=== PATIENT | female | born 1965 | race Caucasian/White ===

== ENCOUNTER 2016-10-16 15:52 | Emergency (ER) | payer OTHER ==
[~2016-10-16] VITALS: Ht 160 cm; Wt 63.6 kg
[~2016-10-16 15:52] MED LIST: AUGMENTIN875TAB PO; BENZTROPINE1 MG PO; BENZTROPINE2 MG PO; BUSPAR5 MG PO; DEPAKOTE ER500 MG PO; DOCUSATE CAL240 MG PO; LEVOTHYROXIN75 MCG PO; PEPCID20 MG PO; RISPERIDAL IM; TRAZODONE50 MG PO
[2016-10-16 17:07] LABS: HEMATOCRIT 24.4 % (37.0-47.0); HEMOGLOBIN 8.9 g/dl (12.0-16.0); IMMATURE GRANULOCYTES 0.2 % (0.0-1.0); MEAN CELL VOLUME 94.6 fL CALC (80.0-100.0); MEAN CORPUSCULAR HGB 34.5 pG CALC (26.0-32.0); MEAN CORPUSCULAR HGB CONC 36.5 g/L CALC (32.0-36.0); NEUT# 0.9 thou/uL (2.00-7.15); RED BLOOD COUNT 2.58 mill/uL (4.20-5.60); RED CELL DISTRI WIDTH 13.2 % (11.5-15.5)
[2016-10-16 17:16] LABS: ALBUMIN 3.7 g/dL (3.2-5.0); ALKALINE PHOSPHATASE 85 u/l (38-126); AMYLASE 96 u/l (30-110); ANION GAP 12 (6-22 (CALC)); BILIRUBIN, TOTAL 0.3 mg/dL (0.0-1.4); BUN 18 mg/dL (7-17); BUN/CREATININE RATIO 32 (12-20 (CALC)); CALCIUM 8.9 mg/dL (8.4-10.2); CARBON DIOXIDE 29 mmol/l (22-30); CHLORIDE 94 mmol/l (95-108); CREATININE 0.6 mg/dL (0.5-1.0); GFR > 60 ML/MIN (>=60 (CALC)); GFR FOR AFR.AMER. > 60 ML/MIN (>=60 (CALC)); GLUCOSE 64 mg/dL (65-105); LIPASE 82 u/l (23-300); POTASSIUM 3.7 mmol/l (3.5-5.1); SGOT/AST 66 u/l (14-36); SGPT/ALT 35 u/l (9-52); SODIUM 131 mmol/l (137-146); TOTAL PROTEIN 7.3 g/dL (6.3-8.2)
[2016-10-16] MEDS ORDERED: NEXIUM40 M1 PO (17:21)
[2016-10-16] MEDS ORDERED: ZOFRAN4 MG/TAB PO (17:21)
[2016-10-16 17:28] LABS: MYOGLOBIN 34 ng/mL (0 - 62)
[2016-10-16 17:38] VITALS: BP 117/57
== END 2016-10-16 18:08 | disposition home or self-care (01) | DRG 392 ==
LOC: ED 15:52
PROVIDERS: Emergency Medicine
DX: R11.10 Vomiting, unspecified (principal); C79.51 Secondary malignant neoplasm of bone; C80.1 Malignant (primary) neoplasm, unspecified; Z79.899 Other long term (current) drug therapy

== ENCOUNTER 2016-12-20 09:15 | Inpatient (IN) | payer OTHER ==
[~2016-12-20] VITALS: Ht 160 cm; Wt 55.0 kg
[~2016-12-20 09:15] MED LIST changes: +NEXIUM40 M1 PO; +ZOFRAN4 MG/TAB PO
[2016-12-20 10:24] LABS: HEMATOCRIT 24.8 % (37.0-47.0); HEMOGLOBIN 8.8 g/dl (12.0-16.0); IMMATURE GRANULOCYTES 0.4 % (0.0-1.0); MEAN CELL VOLUME 99.2 fL CALC (80.0-100.0); MEAN CORPUSCULAR HGB 35.2 pG CALC (26.0-32.0); MEAN CORPUSCULAR HGB CONC 35.5 g/L CALC (32.0-36.0); NEUT# 3.39 thou/uL (2.00-7.15); RED BLOOD COUNT 2.5 mill/uL (4.20-5.60); RED CELL DISTRI WIDTH 13.6 % (11.5-15.5)
[2016-12-20 10:37] LABS: INTERNATIONAL NORMALIZED RATIO 1.1 RATIO (0.7-1.3); PROTHROMBIN TIME 12.5 SECONDS (9.0-12.5)
[2016-12-20 10:38] LABS: ALBUMIN 3.1 g/dL (3.2-5.0); ALKALINE PHOSPHATASE 78 u/l (38-126); ANION GAP 10 (6-22 (CALC)); BILIRUBIN, TOTAL 0.2 mg/dL (0.0-1.4); BUN 14 mg/dL (7-17); BUN/CREATININE RATIO 23 (12-20 (CALC)); CALCIUM 8.2 mg/dL (8.4-10.2); CARBON DIOXIDE 30 mmol/l (22-30); CHLORIDE 93 mmol/l (95-108); CREATININE 0.6 mg/dL (0.5-1.0); GFR > 60 ML/MIN (>=60 (CALC)); GFR FOR AFR.AMER. > 60 ML/MIN (>=60 (CALC)); GLUCOSE 112 mg/dL (65-105); POTASSIUM 3.4 mmol/l (3.5-5.1); SGOT/AST 144 u/l (14-36); SGPT/ALT 61 u/l (9-52); SODIUM 130 mmol/l (137-146); TOTAL PROTEIN 6.2 g/dL (6.3-8.2)
[2016-12-20 10:50] LABS: MYOGLOBIN 70 ng/mL (0 - 62)
[2016-12-20 12:03] LABS: URINE BILIRUBIN - DIPSTICK NEGATIVE (NEGATIVE); URINE BLOOD DIPSTICK LARGE (NEGATIVE); URINE COLOR YELLOW; URINE GLUCOSE - DIPSTICK 500 mg/dL (NEGATIVE); URINE KETONE NEGATIVE (NEGATIVE); URINE LEUK ESTERASE NEGATIVE (Negative); URINE NITRITE - DIPSTICK NEGATIVE (Negative); URINE PROTEIN - DIPSTICK NEGATIVE (NEG-TRACE); URINE UROBILINOGEN - DIPSTICK 0.2 E.U./dL (0.2)
[2016-12-20 12:06] LABS: BARBITURATES NEGATIVE (NEGATIVE); COCAINE NEGATIVE (NEGATIVE); METHADONE NEGATIVE (NEGATIVE); OXCYCODONE NEGATIVE (NEGATIVE); TETRAHYDROCANNABIONOL NEGATIVE (NEGATIVE); TRICYLIC ANTIDEPRESSANTS NEGATIVE (NEGATIVE)
[2016-12-20 12:08] LABS: URINE CLARITY TURBID
[2016-12-20 12:14] LABS: URINE RBC 25-50 RBC/hpf (0-5); URINE SQUAMOUS EPITHELIAL CELL FEW EPI/hpf (0-FEW)
[2016-12-20 12:27] LABS: TSH, 3RD GENERATION 0.72 uIU/mL (0.47 - 4.68)
[2016-12-20 14:30] VITALS: BP 122/59
[2016-12-20 17:30] VITALS: BP 127/63
[2016-12-20 19:27] VITALS: BP 111/63
[2016-12-20 23:26] VITALS: BP 81/49
[2016-12-21] VITALS (24 sets, daily range): BP systolic 76–170; BP diastolic 45–79
[2016-12-21 05:00] LABS: HEMATOCRIT 22.3 % (37.0-47.0); HEMOGLOBIN 7.7 g/dl (12.0-16.0); IMMATURE GRANULOCYTES 0.3 % (0.0-1.0); MEAN CELL VOLUME 98.7 fL CALC (80.0-100.0); MEAN CORPUSCULAR HGB 34.1 pG CALC (26.0-32.0); MEAN CORPUSCULAR HGB CONC 34.5 g/L CALC (32.0-36.0); NEUT# 1.19 thou/uL (2.00-7.15); RED BLOOD COUNT 2.26 mill/uL (4.20-5.60); RED CELL DISTRI WIDTH 13.4 % (11.5-15.5)
[2016-12-21 05:16] LABS: BUN 8 mg/dL (7-17); BUN/CREATININE RATIO 16 (12-20 (CALC)); CALCIUM 7.8 mg/dL (8.4-10.2); CARBON DIOXIDE 26 mmol/l (22-30); CHLORIDE 89 mmol/l (95-108); CREATININE 0.5 mg/dL (0.5-1.0); GFR > 60 ML/MIN (>=60 (CALC)); GFR FOR AFR.AMER. > 60 ML/MIN (>=60 (CALC)); GLUCOSE 75 mg/dL (65-105); POTASSIUM 4.9 mmol/l (3.5-5.1)
[2016-12-21 05:18] LABS: ANION GAP 9 (6-22 (CALC)); SODIUM 119 mmol/l (137-146)
[2016-12-21 07:49] LABS: URINE BILIRUBIN - DIPSTICK NEGATIVE (NEGATIVE); URINE BLOOD DIPSTICK LARGE (NEGATIVE); URINE CLARITY SLIGHT CLOUDY; URINE COLOR YELLOW; URINE GLUCOSE - DIPSTICK NEGATIVE (NEGATIVE); URINE KETONE NEGATIVE (NEGATIVE); URINE LEUK ESTERASE SMALL (Negative); URINE NITRITE - DIPSTICK POSITIVE (Negative); URINE PROTEIN - DIPSTICK NEGATIVE (NEG-TRACE); URINE SPECIFIC GRAVITY 1.015; URINE UROBILINOGEN - DIPSTICK 0.2 E.U./dL (0.2)
[2016-12-21 07:58] LABS: URINE BACTERIA MANY hpf
[2016-12-21 09:23] LABS: ANION GAP 7 (6-22 (CALC)); BUN 6 mg/dL (7-17); BUN/CREATININE RATIO 13 (12-20 (CALC)); CALCIUM 7.2 mg/dL (8.4-10.2); CARBON DIOXIDE 28 mmol/l (22-30); CHLORIDE 92 mmol/l (95-108); CREATININE 0.5 mg/dL (0.5-1.0); GFR > 60 ML/MIN (>=60 (CALC)); GFR FOR AFR.AMER. > 60 ML/MIN (>=60 (CALC)); GLUCOSE 73 mg/dL (65-105); POTASSIUM 4.4 mmol/l (3.5-5.1); SODIUM 123 mmol/l (137-146)
[2016-12-21] MEDS ORDERED: OXCARBAZEPINE600 MG PO (11:53)
[2016-12-21 20:58] LABS: POTASSIUM 4.1 mmol/l (3.5-5.1)
[2016-12-22] VITALS (18 sets, daily range): BP systolic 81–115; BP diastolic 49–67
[2016-12-22 12:10] LABS: ANION GAP 9 (6-22 (CALC)); BUN 2 mg/dL (7-17); BUN/CREATININE RATIO 6 (12-20 (CALC)); CALCIUM 7.8 mg/dL (8.4-10.2); CARBON DIOXIDE 24 mmol/l (22-30); CHLORIDE 94 mmol/l (95-108); CREATININE 0.4 mg/dL (0.5-1.0); GFR > 60 ML/MIN (>=60 (CALC)); GFR FOR AFR.AMER. > 60 ML/MIN (>=60 (CALC)); GLUCOSE 83 mg/dL (65-105); POTASSIUM 4.6 mmol/l (3.5-5.1); SODIUM 122 mmol/l (137-146)
[2016-12-23] VITALS (13 sets, daily range): BP systolic 61–95; BP diastolic 36–50
[2016-12-23 05:09] LABS: HEMATOCRIT 23.9 % (37.0-47.0); HEMOGLOBIN 8.8 g/dl (12.0-16.0); IMMATURE GRANULOCYTES 0.2 % (0.0-1.0); MEAN CELL VOLUME 94.1 fL CALC (80.0-100.0); MEAN CORPUSCULAR HGB 34.6 pG CALC (26.0-32.0); MEAN CORPUSCULAR HGB CONC 36.8 g/L CALC (32.0-36.0); NEUT# 2.4 thou/uL (2.00-7.15); RED BLOOD COUNT 2.54 mill/uL (4.20-5.60); RED CELL DISTRI WIDTH 12.8 % (11.5-15.5)
[2016-12-23 05:10] LABS: ANION GAP 7 (6-22 (CALC)); BUN 3 mg/dL (7-17); BUN/CREATININE RATIO 7 (12-20 (CALC)); CALCIUM 7.5 mg/dL (8.4-10.2); CARBON DIOXIDE 28 mmol/l (22-30); CHLORIDE 93 mmol/l (95-108); CREATININE 0.5 mg/dL (0.5-1.0); GFR > 60 ML/MIN (>=60 (CALC)); GFR FOR AFR.AMER. > 60 ML/MIN (>=60 (CALC)); GLUCOSE 63 mg/dL (65-105); POTASSIUM 3.7 mmol/l (3.5-5.1); SODIUM 124 mmol/l (137-146)
[2016-12-23 20:20] LABS: ANION GAP 8 (6-22 (CALC)); BUN 5 mg/dL (7-17); BUN/CREATININE RATIO 9 (12-20 (CALC)); CALCIUM 7.8 mg/dL (8.4-10.2); CARBON DIOXIDE 28 mmol/l (22-30); CHLORIDE 93 mmol/l (95-108); CREATININE 0.5 mg/dL (0.5-1.0); GFR > 60 ML/MIN (>=60 (CALC)); GFR FOR AFR.AMER. > 60 ML/MIN (>=60 (CALC)); GLUCOSE 94 mg/dL (65-105); POTASSIUM 3.2 mmol/l (3.5-5.1); SODIUM 126 mmol/l (137-146)
[2016-12-24] VITALS (11 sets, daily range): BP systolic 72–86; BP diastolic 41–51
[2016-12-24 04:42] LABS: ANION GAP 9 (6-22 (CALC)); BUN 5 mg/dL (7-17); BUN/CREATININE RATIO 10 (12-20 (CALC)); CALCIUM 7.7 mg/dL (8.4-10.2); CARBON DIOXIDE 29 mmol/l (22-30); CHLORIDE 97 mmol/l (95-108); CREATININE 0.5 mg/dL (0.5-1.0); GFR > 60 ML/MIN (>=60 (CALC)); GFR FOR AFR.AMER. > 60 ML/MIN (>=60 (CALC)); GLUCOSE 95 mg/dL (65-105); POTASSIUM 3.9 mmol/l (3.5-5.1); SODIUM 131 mmol/l (137-146)
[2016-12-24 05:17] LABS: HEMATOCRIT 22.4 % (37.0-47.0); HEMOGLOBIN 8.2 g/dl (12.0-16.0); IMMATURE GRANULOCYTES 0.8 % (0.0-1.0); MEAN CELL VOLUME 96.1 fL CALC (80.0-100.0); MEAN CORPUSCULAR HGB 35.2 pG CALC (26.0-32.0); MEAN CORPUSCULAR HGB CONC 36.6 g/L CALC (32.0-36.0); NEUT# 7.9 thou/uL (2.00-7.15); RED BLOOD COUNT 2.33 mill/uL (4.20-5.60); RED CELL DISTRI WIDTH 13.2 % (11.5-15.5)
[2016-12-25 00:27] VITALS: BP 82/47
[2016-12-25 03:15] VITALS: BP 91/61
[2016-12-25 06:26] LABS: ANION GAP 13 (6-22 (CALC)); BUN 5 mg/dL (7-17); BUN/CREATININE RATIO 11 (12-20 (CALC)); CALCIUM 8.5 mg/dL (8.4-10.2); CARBON DIOXIDE 28 mmol/l (22-30); CHLORIDE 105 mmol/l (95-108); CREATININE 0.5 mg/dL (0.5-1.0); GFR > 60 ML/MIN (>=60 (CALC)); GFR FOR AFR.AMER. > 60 ML/MIN (>=60 (CALC)); GLUCOSE 135 mg/dL (65-105); POTASSIUM 4.6 mmol/l (3.5-5.1)
[2016-12-25 06:31] LABS: SODIUM 141 mmol/l (137-146)
[2016-12-25 06:52] LABS: HEMATOCRIT 24.6 % (37.0-47.0); HEMOGLOBIN 9.3 g/dl (12.0-16.0); LYMPH% 11 % (15-41); MEAN CELL VOLUME 99.6 fL CALC (80.0-100.0); MEAN CORPUSCULAR HGB 37.7 pG CALC (26.0-32.0); MEAN CORPUSCULAR HGB CONC 37.8 g/L CALC (32.0-36.0); MONO% 9 % (2-13); NEUT% 80 % (42-76); PLATELET COUNT 209 thou/uL (130-400); RED BLOOD COUNT 2.47 mill/uL (4.20-5.60); RED CELL DISTRI WIDTH 16.3 % (11.5-15.5)
[2016-12-25] MEDS ORDERED: HYDROCORTISONE5 MG PO (08:56)
[2016-12-25] MEDS ORDERED: KEFLEX500 MG PO (08:56)
[2016-12-25] MEDS ORDERED: LEVOTHYROXIN100 MC1 PO (08:56)
[2016-12-25] MEDS ORDERED: HYDROCORTISONE10 MG PO (08:56)
== END 2016-12-25 11:30 | disposition short-term general hospital (02) | DRG 644 ==
LOC: ENPENDDIS → ED 09:15 → ED-I 09:52 → ED 11:54 → ICU 11:55 → ED 11:55 → ICU 12-21 09:00
PROVIDERS: Emergency Medicine; Internal Medicine; ADMIT Internal Medicine; ATTEND Internal Medicine
PROC: 0T9B70Z Drainage of Bladder with Drainage Device, Via Natural or Artificial Opening (ICD-10-PCS; principal; 2016-12-21)
DX: E27.40 Unspecified adrenocortical insufficiency (principal); D61.818 Other pancytopenia; E22.2 Syndrome of inappropriate secretion of antidiuretic hormone; E11.649 Type 2 diabetes mellitus with hypoglycemia without coma; N39.0 Urinary tract infection, site not specified; E03.9 Hypothyroidism, unspecified; F20.9 Schizophrenia, unspecified; G40.909 Epilepsy, unspecified, not intractable, without status epilepticus; T43.505A Adverse effect of unspecified antipsychotics and neuroleptics, initial encounter; B96.20 Unspecified Escherichia coli [E. coli] as the cause of diseases classified elsewhere; Z95.0 Presence of cardiac pacemaker

== ENCOUNTER 2017-01-15 15:54 | Emergency (ER) | payer OTHER ==
[~2017-01-15] VITALS: Ht 160 cm; Wt 56.0 kg
[~2017-01-15 15:54] MED LIST changes: +HYDROCORTISONE10 MG PO; +HYDROCORTISONE5 MG PO; +KEFLEX500 MG PO; +LEVOTHYROXIN100 MC1 PO; +OXCARBAZEPINE600 MG PO
[2017-01-15] MEDS ORDERED: LIPITOR20 M1 PO (16:19)
[2017-01-15] MEDS ORDERED: TYLENOL # 31 TA1 PO (16:58)
[2017-01-15] MEDS ORDERED: MOTRIN800 MG PO (16:58)
[2017-01-15 17:34] VITALS: BP 107/57
== END 2017-01-15 17:34 | disposition home or self-care (01) | DRG 563 ==
LOC: ED 15:54
DX: S42.251A Displaced fracture of greater tuberosity of right humerus, initial encounter for closed fracture (principal); J44.9 Chronic obstructive pulmonary disease, unspecified; E11.9 Type 2 diabetes mellitus without complications; E03.9 Hypothyroidism, unspecified; K21.9 Gastro-esophageal reflux disease without esophagitis; W19.XXXA Unspecified fall, initial encounter; Y93.9 Activity, unspecified; Y92.129 Unspecified place in nursing home as the place of occurrence of the external cause; Z91.81 History of falling; Z95.0 Presence of cardiac pacemaker

== ENCOUNTER 2017-06-06 10:31 | Observation (INO) | payer OTHER ==
[~2017-06-06] VITALS: Ht 170.2 cm; Wt 50.7 kg
[~2017-06-06 10:31] MED LIST changes: +LIPITOR20 M1 PO; +MOTRIN800 MG PO; +TYLENOL # 31 TA1 PO
--- NOTE | 2017-06-06 10:53 | NUR ---
PATIENT AMBULATED TO ROOM WITH STEADY GAIT AND PHYSICIAN NOTIFIED OF PATIENT STATUS
--- NOTE | 2017-06-06 11:20 | NUR ---
PATIENT IS ALERT AND ORIENTED TO SELF. REORIENTED TO TIME AND PLACE. PATIENT IS COMMUNICATED WITH STAFF. CALL LIGHT PLACED WITHIN REACH, WILL CONTINUE TO MONITOR.
[2017-06-06 11:38] LABS: HEMATOCRIT 25.5 % (37.0-47.0); HEMOGLOBIN 9.3 g/dl (12.0-16.0); IMMATURE GRANULOCYTES 0.4 % (0.0-1.0); MEAN CELL VOLUME 95.5 fL CALC (80.0-100.0); MEAN CORPUSCULAR HGB 34.8 pG CALC (26.0-32.0); MEAN CORPUSCULAR HGB CONC 36.5 g/L CALC (32.0-36.0); NEUT# 1.54 thou/uL (2.00-7.15); RED BLOOD COUNT 2.67 mill/uL (4.20-5.60); RED CELL DISTRI WIDTH 14.3 % (11.5-15.5)
[2017-06-06 11:47] LABS: ALBUMIN 3.5 g/dL (3.2-5.0); ALKALINE PHOSPHATASE 91 u/l (38-126); ANION GAP 11 (6-22 (CALC)); BILIRUBIN, TOTAL 0.4 mg/dL (0.0-1.4); BUN 18 mg/dL (7-17); BUN/CREATININE RATIO 37 (12-20 (CALC)); CALCIUM 8.8 mg/dL (8.4-10.2); CARBON DIOXIDE 26 mmol/l (22-30); CHLORIDE 93 mmol/l (95-108); CREATININE 0.5 mg/dL (0.5-1.0); GFR > 60 ML/MIN (>=60 (CALC)); GFR FOR AFR.AMER. > 60 ML/MIN (>=60 (CALC)); GLUCOSE 62 mg/dL (65-105); POTASSIUM 4.4 mmol/l (3.5-5.1); SGOT/AST 41 u/l (14-36); SGPT/ALT 40 u/l (9-52); SODIUM 125 mmol/l (137-146); TOTAL PROTEIN 6.4 g/dL (6.3-8.2)
--- NOTE | 2017-06-06 11:52 | NUR ---
PATIENT SET UP WITH MEAL TRAY. WILL CONTINUE TO MONITOR.
[2017-06-06] MEDS ORDERED: COLACE100 MG PO (12:01)
[2017-06-06] MEDS ORDERED: NEXIUM40 M1 PO (12:02)
[2017-06-06] MEDS ORDERED: LEVOTHYROXIN75 MCG PO (12:08)
[2017-06-06] MEDS ORDERED: OMEPRAZOLE10 MG PO (12:09)
--- NOTE | 2017-06-06 12:54 | NUR ---
PATIENT RESTING ON STRETCHER NO SIGNS OF DISTRESS NOTED. PATIENT YELLING OUT, FREQUESNTLY ORIENTED TO TIME AND PLACE. ATE 100% OF MEAL. 240 ML OF PO FLUIDS TAKEN. CALL LIGHT WITHIN REACH WILL CONTINUE TO MONITOR.
--- NOTE | 2017-06-06 13:25 | NUR ---
MD AWARE OF BLOOD GLUCOSE OF 51, PATIENT PROVIDED WITH ORANGE JUICE, PEANUT BUTTER, CRACKERS, AND PUDDING. WILL CONTINUE TO MONITOR.
--- NOTE | 2017-06-06 13:52 | NUR ---
REPORT CALLED TO DENIS ADAM.
--- NOTE | 2017-06-06 14:04 | NUR ---
PATIENT TO [facility] VIA WHEELCHAIR WITH TELE IN PLACE, ER NURSE TO TRANSPORT.
[2017-06-06 14:05] VITALS: BP 126/73
--- NOTE | 2017-06-06 14:10 | NUR ---
PT TO ROOM VIA WC ACCOMPANIED BY STAFF; MODERATE ASSISTANCE TO BED; PT ALERT, ORIENTED TO NAME ONLY; REORIENTATION TO TIME AND PLACE UNSUCCESSFUL; PT HX OF SCHIZOPHRENIA; HX OBTAINED FROM RECORDS SENT BY LONG TERM; #18 LEJ INFUSING WITHOUT DIFFICULTY, NO REDNESS OR EDEMA NOTED; TELE MONITOR IN PLACE; BED ALARM FOR PT SAFETY; CALL GALLARDO WITHIN REACH; WILL CONTINUE TO MONITOR.
--- NOTE | 2017-06-06 16:51 | NUR ---
Visited pt rm for med rec, pt was not able to give information about her medications. Called her pcp (Orion Andino), asked her med list to be faxed to us. Called pt's contacts on her profile (3 people) but none of the numbers worked.
[2017-06-06] MEDS ORDERED: HYDROCORTISONE5 MG PO (17:42)
--- NOTE | 2017-06-06 17:45 | NUR ---
PT YELLING OUT; RESTLESS IN BED; PT STATES HER LEGS "HURT REAL BAD" MD NOTIFIED AND PT MEDICATED ORDERED; CALL GALLARDO WITHIN REACH; BED ALARM IN USE; WILL CONTINUE TO MONITOR.
--- NOTE | 2017-06-06 18:30 | NUR ---
PT CONTINUES TO YELL OUT AT TIMES; REORIENTATION UNSUCCESSFUL;
[2017-06-06 19:23] VITALS: BP 134/74
--- NOTE | 2017-06-06 20:47 | NUR ---
PT IN BED A/O TO SELF AND , ORIENTED TO TIME AND PLACE. DENIES PAIN, IS YELLING PROFANITY OUT LOUD, WHEN APROACHED IS PLEASANT AND FOLLOWS DIRECTIONS. MEDICATED WITH ATIVAN 1MG IV. NS INFUSING TO LEFT JUGULAR AT 150CC/HR. BED ALARM IN PLACE, CALL LIGHT IN REACH.
--- NOTE | 2017-06-06 21:17 | NUR ---
PT RESTING WITH EYES CLOSED, RESPIRATIONS EVEN AND UNLABORED. INCONTINENT OF LARGE AMOUNT YELLOW URINE, TADEO CARE PROVIDED, CLEAN LINENS APPLIED.
[2017-06-07 00:51] VITALS: BP 92/55
--- NOTE | 2017-06-07 00:51 | NUR ---
PT RESTING WITH EYES CLOSED, IV FLUIDS INFUSING WITH NO COMPLICATIONS, TEMP 95.6, STEFANO HUGGER APPLIED. WILL CONTINUE TO MONITOR.
--- NOTE | 2017-06-07 02:52 | NUR ---
TEMP 97.0, RESPIRATIONS EVEN AND UNLABORED. RESTING WITH EYES CLOSED.
[2017-06-07 04:59] VITALS: BP 90/50
--- NOTE | 2017-06-07 05:00 | NUR ---
TEMP 97.9, INCONTINENT OF LARGE AMOUNT YELLOW URINE, TADEO CARE AND PARTIAL BATH PROVIDED, CLEAN LINEN PROVIDED.
[2017-06-07 06:22] LABS: HEMATOCRIT 27.7 % (37.0-47.0); IMMATURE GRANULOCYTES 0.3 % (0.0-1.0); MEAN CELL VOLUME 96.5 fL CALC (80.0-100.0); MEAN CORPUSCULAR HGB 34.8 pG CALC (26.0-32.0); MEAN CORPUSCULAR HGB CONC 36.1 g/L CALC (32.0-36.0); NEUT# 2.65 thou/uL (2.00-7.15); RED BLOOD COUNT 2.87 mill/uL (4.20-5.60); RED CELL DISTRI WIDTH 14.2 % (11.5-15.5)
[2017-06-07 06:42] LABS: ANION GAP 10 (6-22 (CALC)); BUN 12 mg/dL (7-17); BUN/CREATININE RATIO 19 (12-20 (CALC)); CALCIUM 8.3 mg/dL (8.4-10.2); CARBON DIOXIDE 26 mmol/l (22-30); CHLORIDE 96 mmol/l (95-108); CREATININE 0.7 mg/dL (0.5-1.0); GFR > 60 ML/MIN (>=60 (CALC)); GFR FOR AFR.AMER. > 60 ML/MIN (>=60 (CALC)); GLUCOSE 82 mg/dL (65-105); MAGNESIUM 1.3 mg/dL (1.6-2.3); POTASSIUM 4.5 mmol/l (3.5-5.1); SODIUM 127 mmol/l (137-146)
--- NOTE | 2017-06-07 07:40 | NUR ---
PT ALERT, ORIENTED TO SELF ONLY; REORIENTATION UNSUCCESSFUL; YELLS OUT AT TIMES; VERBAL CUES SUCCESSFUL; PT ASSISTED WITH BREAKFAST SET UP; CALL GALLARDO WITHIN REACH; WILL CONTINUE TO MONITOR.
[2017-06-07 07:41] VITALS: BP 97/69
[2017-06-07 09:26] LABS: CHOLESTEROL HDL RATIO 2.7 (<4.4 (CALC))
[2017-06-07 11:07] VITALS: BP 80/50
--- NOTE | 2017-06-07 11:40 | NUR ---
PT ASSISTED WITH LUNCH SET UP; NO COMPLAINTS VOICED; IVF INFUSING WITHOUT DIFFICULTY; PT DENIES PAIN; ALERT TO SELF ONLY, ORIENTATION UNSUCCESSFUL; CALL GALLARDO WITHIN REACH; BED ALARM IN PLACE; WILL CONTINUE TO MONITOR
[2017-06-07] MEDS ORDERED: PREDNISONE10 MG PO (13:46)
--- NOTE | 2017-06-07 14:27 | NUR ---
PT RESTING WITH EYES CLOSED; NO S/SX OF DISTERSS NOTED; CALL GALLARDO WITHIN REACH; BED ALARM IN PLACE FOR SAFETY; CALL GALLARDO WITHIN REACH; WILL CONTINUE TO MONITOR.
--- NOTE | 2017-06-07 15:55 | NUR ---
Discharge instructions given. Patient verbalizes understanding of same. Discharged in stable condition via Wheelchair to Home with family. All belongings sent with pt.
== END 2017-06-07 15:53 | DRG 641 ==
LOC: ED 10:31 → ED-I 10:58 → ED 13:28 → MS2 13:29
PROVIDERS: Emergency Medicine; Nurse Practitioner Family; ADMIT Internal Medicine; ATTEND Internal Medicine
DX: E87.1 Hypo-osmolality and hyponatremia (principal); I95.9 Hypotension, unspecified; E83.42 Hypomagnesemia; F20.9 Schizophrenia, unspecified; D64.9 Anemia, unspecified; E03.9 Hypothyroidism, unspecified; J44.9 Chronic obstructive pulmonary disease, unspecified; K21.9 Gastro-esophageal reflux disease without esophagitis; E78.5 Hyperlipidemia, unspecified; I51.9 Heart disease, unspecified; E16.2 Hypoglycemia, unspecified; Z95.0 Presence of cardiac pacemaker
CPT/HCPCS: G0378; J2060; J3475

== ENCOUNTER 2017-07-15 17:05 | Emergency (ER) | payer OTHER ==
[~2017-07-15] VITALS: Ht 170.2 cm; Wt 55.0 kg
[~2017-07-15 17:05] MED LIST changes: +COLACE100 MG PO; +OMEPRAZOLE10 MG PO; +PREDNISONE10 MG PO
[2017-07-15 19:25] VITALS: BP 136/68
== END 2017-07-15 19:25 | DRG 605 ==
LOC: ED 17:05
PROC: 0HQ0XZZ Repair Scalp Skin, External Approach (ICD-10-PCS; principal; 2017-07-15)
DX: S01.01XA Laceration without foreign body of scalp, initial encounter (principal); S16.1XXA Strain of muscle, fascia and tendon at neck level, initial encounter; E03.9 Hypothyroidism, unspecified; E11.9 Type 2 diabetes mellitus without complications; K21.9 Gastro-esophageal reflux disease without esophagitis; J44.9 Chronic obstructive pulmonary disease, unspecified; W18.12XA Fall from or off toilet with subsequent striking against object, initial encounter; Y93.9 Activity, unspecified; Y92.091 Bathroom in other non-institutional residence as the place of occurrence of the external cause; Z95.0 Presence of cardiac pacemaker

== ENCOUNTER 2017-07-22 13:54 | Emergency (ER) | payer OTHER ==
[~2017-07-22] VITALS: Ht 170.2 cm; Wt 60.0 kg
[2017-07-22 14:25] VITALS: BP 119/53
== END 2017-07-22 14:25 | disposition home or self-care (01) | DRG 950 ==
LOC: ED 13:54
DX: S01.01XD Laceration without foreign body of scalp, subsequent encounter (principal)

== ENCOUNTER 2017-11-22 06:36 | Emergency (ER) | payer OTHER ==
[~2017-11-22] VITALS: Ht 165.1 cm; Wt 56.3 kg
[2017-11-22] MEDS ORDERED: HYDROCORTISONE5 MG PO (06:56)
[2017-11-22] MEDS ORDERED: BUSPIRONE5 MG PO (06:57)
[2017-11-22 08:14] LABS: HEMATOCRIT 29.2 % (37.0-47.0); HEMOGLOBIN 10.4 g/dl (12.0-16.0); IMMATURE GRANULOCYTES 0.3 % (0.0-1.0); MEAN CELL VOLUME 102.8 fL CALC (80.0-100.0); MEAN CORPUSCULAR HGB 36.6 pG CALC (26.0-32.0); MEAN CORPUSCULAR HGB CONC 35.6 g/L CALC (32.0-36.0); NEUT# 5.35 thou/uL (2.00-7.15); RED BLOOD COUNT 2.84 mill/uL (4.20-5.60); RED CELL DISTRI WIDTH 12.9 % (11.5-15.5)
[2017-11-22 08:29] LABS: ANION GAP 12 (6-22 (CALC)); BUN 17 mg/dL (7-17); BUN/CREATININE RATIO 32 (12-20 (CALC)); CARBON DIOXIDE 29 mmol/l (22-30); CHLORIDE 93 mmol/l (95-108); CREATININE 0.5 mg/dL (0.5-1.0); GFR > 60 ML/MIN (>=60 (CALC)); GFR FOR AFR.AMER. > 60 ML/MIN (>=60 (CALC)); POTASSIUM 3.8 mmol/l (3.5-5.1)
[2017-11-22 08:30] LABS: SODIUM 130 mmol/l (137-146)
[2017-11-22 11:43] VITALS: BP 146/70
== END 2017-11-22 12:17 | disposition home or self-care (01) | DRG 101 ==
LOC: ED 06:36
PROVIDERS: Family Medicine
DX: G40.909 Epilepsy, unspecified, not intractable, without status epilepticus (principal); F03.90 Unspecified dementia, unspecified severity, without behavioral disturbance, psychotic disturbance, mood disturbance, and anxiety; D64.9 Anemia, unspecified; E07.9 Disorder of thyroid, unspecified; E11.9 Type 2 diabetes mellitus without complications; F32.9 Major depressive disorder, single episode, unspecified; K21.9 Gastro-esophageal reflux disease without esophagitis; F41.9 Anxiety disorder, unspecified

== ENCOUNTER 2018-07-29 16:52 | Emergency (ER) | payer OTHER ==
[~2018-07-29] VITALS: Ht 165.1 cm; Wt 65.0 kg
[~2018-07-29 16:52] MED LIST changes: +BUSPIRONE5 MG PO
[2018-07-29 18:25] LABS: URINE BILIRUBIN - DIPSTICK NEGATIVE (NEGATIVE); URINE BLOOD DIPSTICK MODERATE (NEGATIVE); URINE COLOR YELLOW; URINE GLUCOSE - DIPSTICK NEGATIVE (NEGATIVE); URINE KETONE NEGATIVE (NEGATIVE); URINE LEUK ESTERASE NEGATIVE (NEGATIVE); URINE NITRITE - DIPSTICK NEGATIVE (Negative); URINE PROTEIN - DIPSTICK NEGATIVE (NEG-TRACE); URINE SPECIFIC GRAVITY 1.015; URINE UROBILINOGEN - DIPSTICK 0.2 E.U./dL (0.2)
[2018-07-29 18:33] LABS: URINE SQUAMOUS EPITHELIAL CELL RARE EPI/hpf (0-FEW)
[2018-07-29] MEDS ORDERED: KEFLEX500 M1 PO (18:51)
[2018-07-29 19:02] VITALS: BP 131/58
== END 2018-07-29 19:02 | disposition home or self-care (01) ==
LOC: ED 16:52
DX: N39.0 Urinary tract infection, site not specified (principal); R35.0 Frequency of micturition

== ENCOUNTER 2018-12-17 12:47 | Inpatient (IN) | payer OTHER ==
[~2018-12-17] VITALS: Ht 165.1 cm; Wt 70.6 kg
[~2018-12-17 12:47] MED LIST changes: +KEFLEX500 M1 PO
[2018-12-17 14:08] LABS: HEMATOCRIT 31.6 % (37.0-47.0); IMMATURE GRANULOCYTES 0.7 % (0.0-5.0); MEAN CELL VOLUME 101.3 fL CALC (80.0-100.0); MEAN CORPUSCULAR HGB 35.3 pG CALC (26.0-32.0); MEAN CORPUSCULAR HGB CONC 34.8 g/L CALC (32.0-36.0); NEUT# 7.32 thou/uL (2.00-7.15); RED BLOOD COUNT 3.12 mill/uL (4.20-5.60); RED CELL DISTRI WIDTH 13.2 % (11.5-15.5)
[2018-12-17 14:33] LABS: ALBUMIN 3.8 g/dL (3.2-5.0); CREATININE 1.3 mg/dL (0.5-1.0); POTASSIUM 4.1 mmol/l (3.5-5.1); TOTAL PROTEIN 6.8 g/dL (6.3-8.2)
[2018-12-17 14:36] LABS: BILIRUBIN, TOTAL 0.6 mg/dL (0.0-1.4)
[2018-12-17 17:42] LABS: URINE BLOOD DIPSTICK LARGE (NEGATIVE); URINE COLOR YELLOW; URINE GLUCOSE - DIPSTICK NEGATIVE (NEGATIVE); URINE KETONE TRACE mg/dL (NEGATIVE); URINE LEUK ESTERASE NEGATIVE (NEGATIVE); URINE NITRITE - DIPSTICK NEGATIVE (Negative); URINE PROTEIN - DIPSTICK TRACE mg/dL (NEG-TRACE); URINE SPECIFIC GRAVITY >=1.030; URINE UROBILINOGEN - DIPSTICK 0.2 E.U./dL (0.2)
[2018-12-17 17:58] LABS: URINE BILIRUBIN - DIPSTICK NEGATIVE (NEGATIVE)
[2018-12-17 17:59] LABS: URINE AMORPH SEDIMENT MANY hpf (NONE-FEW); URINE SQUAMOUS EPITHELIAL CELL FEW EPI/hpf (0-FEW); URINE WBC 0-2 WBC/hpf (0-5)
[2018-12-17 20:30] VITALS: BP 93/77
[2018-12-18 03:44] VITALS: BP 90/49
[2018-12-18 07:41] VITALS: BP 81/49
[2018-12-18 16:00] VITALS: BP 85/53
[2018-12-18 19:05] VITALS: BP 98/57
[2018-12-19 04:05] VITALS: BP 100/64
[2018-12-19 05:13] LABS: HEMATOCRIT 27.9 % (37.0-47.0); HEMOGLOBIN 9.7 g/dl (12.0-16.0); IMMATURE GRANULOCYTES 3.6 % (0.0-5.0); MEAN CORPUSCULAR HGB 35.8 pG CALC (26.0-32.0); MEAN CORPUSCULAR HGB CONC 34.8 g/L CALC (32.0-36.0); PLATELET COUNT 207 thou/uL (130-400); RED BLOOD COUNT 2.71 mill/uL (4.20-5.60); RED CELL DISTRI WIDTH 13.6 % (11.5-15.5)
[2018-12-19 05:44] LABS: ALKALINE PHOSPHATASE 89 u/l (38-126); BUN 16 mg/dL (7-17); BUN/CREATININE RATIO 26 (12-20 (CALC)); CARBON DIOXIDE 26 mmol/l (22-30); CREATININE 0.6 mg/dL (0.5-1.0); GFR > 60 ML/MIN (>=60 (CALC)); GFR FOR AFR.AMER. > 60 ML/MIN (>=60 (CALC)); LIPASE 30 u/l (23-300); MAGNESIUM 1.5 mg/dL (1.6-2.3); POTASSIUM 3.6 mmol/l (3.5-5.1); SGOT/AST 36 u/l (14-36)
[2018-12-19 05:50] LABS: ALBUMIN 2.8 g/dL (3.2-5.0); AMYLASE < 30 u/l (30-110); ANION GAP 13 (6-22 (CALC)); BILIRUBIN, TOTAL 0.2 mg/dL (0.0-1.4); CHLORIDE 102 mmol/l (95-108); SODIUM 137 mmol/l (137-146); TOTAL PROTEIN 5.4 g/dL (6.3-8.2)
[2018-12-19 06:01] LABS: MANUAL DIFFERENTIAL YES
[2018-12-19 06:03] LABS: BAND 2 % (0-8)
[2018-12-19 07:44] VITALS: BP 107/65
[2018-12-19 15:51] LABS: C. DIFFICILE TOXIN A&B NEGATIVE (NEGATIVE)
[2018-12-19 16:44] VITALS: BP 116/56
[2018-12-19 19:00] VITALS: BP 131/75
[2018-12-20 04:10] VITALS: BP 115/74
[2018-12-20 05:29] LABS: HEMATOCRIT 29.3 % (37.0-47.0); HEMOGLOBIN 10.3 g/dl (12.0-16.0); MEAN CELL VOLUME 102.1 fL CALC (80.0-100.0); MEAN CORPUSCULAR HGB 35.9 pG CALC (26.0-32.0); MEAN CORPUSCULAR HGB CONC 35.2 g/L CALC (32.0-36.0); PLATELET COUNT 221 thou/uL (130-400); RED BLOOD COUNT 2.87 mill/uL (4.20-5.60); RED CELL DISTRI WIDTH 13.8 % (11.5-15.5)
[2018-12-20 05:52] LABS: ALBUMIN 2.6 g/dL (3.2-5.0); ALKALINE PHOSPHATASE 83 u/l (38-126); ANION GAP 11 (6-22 (CALC)); BUN 5 mg/dL (7-17); BUN/CREATININE RATIO 11 (12-20 (CALC)); CARBON DIOXIDE 27 mmol/l (22-30); CHLORIDE 104 mmol/l (95-108); CREATININE 0.5 mg/dL (0.5-1.0); GFR > 60 ML/MIN (>=60 (CALC)); GFR FOR AFR.AMER. > 60 ML/MIN (>=60 (CALC)); MAGNESIUM 1.3 mg/dL (1.6-2.3); POTASSIUM 3.2 mmol/l (3.5-5.1); SGOT/AST 28 u/l (14-36); SODIUM 138 mmol/l (137-146); TOTAL PROTEIN 5.2 g/dL (6.3-8.2)
[2018-12-20 06:05] LABS: BILIRUBIN, TOTAL 0.1 mg/dL (0.0-1.4)
[2018-12-20 06:39] LABS: IMMATURE GRANULOCYTES 6.6 % (0.0-5.0)
[2018-12-20 06:40] LABS: BAND 1 % (0-8); MANUAL DIFFERENTIAL YES
[2018-12-20 06:41] LABS: OTHER CELL TYPE 11
[2018-12-20 09:18] VITALS: BP 110/71
[2018-12-20 18:29] VITALS: BP 120/76
[2018-12-20 19:12] VITALS: BP 118/70
[2018-12-21 05:02] VITALS: BP 120/80
[2018-12-21 07:49] VITALS: BP 133/86
[2018-12-21 15:10] VITALS: BP 134/65
[2018-12-21 16:35] LABS: MAGNESIUM 1.4 mg/dL (1.6-2.3); POTASSIUM 3.4 mmol/l (3.5-5.1)
== END 2018-12-21 17:38 | DRG 390 ==
LOC: ED 12:47 → ED-I 19:18 → ED 19:42 → MS2 19:43
PROVIDERS: Family Medicine; Internal Medicine; Internal Medicine Nephrology; ADMIT Internal Medicine; ATTEND Internal Medicine
DX: K56.600 Partial intestinal obstruction, unspecified as to cause (principal); F20.9 Schizophrenia, unspecified; I10 Essential (primary) hypertension; E11.9 Type 2 diabetes mellitus without complications; K21.9 Gastro-esophageal reflux disease without esophagitis; F41.9 Anxiety disorder, unspecified; F32.9 Major depressive disorder, single episode, unspecified; E03.9 Hypothyroidism, unspecified; G40.909 Epilepsy, unspecified, not intractable, without status epilepticus; E78.5 Hyperlipidemia, unspecified; G47.00 Insomnia, unspecified; I48.0 Paroxysmal atrial fibrillation; I25.10 Atherosclerotic heart disease of native coronary artery without angina pectoris; E87.6 Hypokalemia; E83.42 Hypomagnesemia; F79 Unspecified intellectual disabilities; Z95.0 Presence of cardiac pacemaker
CPT/HCPCS: J3475; S0164

== ENCOUNTER 2019-05-06 11:59 | Emergency (ER) | payer OTHER ==
[~2019-05-06] VITALS: Ht 165.1 cm; Wt 74.5 kg
[2019-05-06] MEDS ORDERED: LIPITOR40 M1 PO (13:20)
[2019-05-06] MEDS ORDERED: LEVOTHYROXIN125 MCG PO (13:21)
[2019-05-06] MEDS ORDERED: LASIX40 MG PO (13:21)
[2019-05-06] MEDS ORDERED: MAG OXIDE400 MG PO (13:21)
[2019-05-06 13:22] LABS: HEMATOCRIT 31.6 % (37.0-47.0); HEMOGLOBIN 10.8 g/dl (12.0-16.0); IMMATURE GRANULOCYTES 0.7 % (0.0-5.0); MEAN CELL VOLUME 101.3 fL CALC (80.0-100.0); MEAN CORPUSCULAR HGB 34.6 pG CALC (26.0-32.0); MEAN CORPUSCULAR HGB CONC 34.2 g/L CALC (32.0-36.0); NEUT# 3.92 thou/uL (2.00-7.15); RED BLOOD COUNT 3.12 mill/uL (4.20-5.60); RED CELL DISTRI WIDTH 13.1 % (11.5-15.5)
[2019-05-06] MEDS ORDERED: OMEPRAZOLE20 M2 PO (13:22)
[2019-05-06] MEDS ORDERED: ALDACTONE50 MG PO (13:22)
[2019-05-06] MEDS ORDERED: OLANZAPINE10 MG PO (13:25)
[2019-05-06] MEDS ORDERED: MIRTAZAPINE15 M1 PO (13:25)
[2019-05-06] MEDS ORDERED: TRILEPTAL600 M1 PO (13:26)
[2019-05-06] MEDS ORDERED: TEMAZEPAM15 MG PO (13:26)
[2019-05-06] MEDS ORDERED: TRILEPTAL300 M1 PO (13:27)
[2019-05-06] MEDS ORDERED: TRAZODONE100 MG PO (13:27)
[2019-05-06] MEDS ORDERED: DEPAKOTE ER500 MG PO (13:28)
[2019-05-06] MEDS ORDERED: CORRECTOL100 MG PO (13:28)
[2019-05-06] MEDS ORDERED: HYDROCORT5 MG PO ×2 (13:29→13:30)
[2019-05-06] MEDS ORDERED: MOTRIN800 MG PO (13:31)
[2019-05-06] MEDS ORDERED: FAMOTIDINE20 M1 PO (13:31)
[2019-05-06] MEDS ORDERED: BUSPIRONE15 MG PO (13:32)
[2019-05-06] MEDS ORDERED: LORAZEPAM0.5 MG PO (13:33)
[2019-05-06 13:42] LABS: ALBUMIN 3.9 g/dL (3.2-5.0); ALKALINE PHOSPHATASE 89 u/l (38-126); BUN 10 mg/dL (7-17); BUN/CREATININE RATIO 19 (12-20 (CALC)); CARBON DIOXIDE 31 mmol/l (22-30); CHLORIDE 94 mmol/l (95-108); CREATININE 0.5 mg/dL (0.5-1.0); D-DIMER 0.82 mg/L (0.19-0.60); GFR > 60 ML/MIN (>=60 (CALC)); GFR FOR AFR.AMER. > 60 ML/MIN (>=60 (CALC)); POTASSIUM 4.1 mmol/l (3.5-5.1); PROTHROMBIN TIME 10.7 SECONDS (9.0-12.5); SGOT/AST 40 u/l (14-36); TOTAL PROTEIN 7.4 g/dL (6.3-8.2)
[2019-05-06 13:44] LABS: ANION GAP 12 (6-22 (CALC)); BILIRUBIN, TOTAL 0.2 mg/dL (0.0-1.4); SODIUM 133 mmol/l (137-146)
[2019-05-06 13:53] LABS: MYOGLOBIN 35 ng/mL (0 - 62)
[2019-05-06] MEDS ORDERED: PROAIR RES108 MCG/AC IN (15:43)
[2019-05-06] MEDS ORDERED: PREDNISONE50 MG PO (15:43)
[2019-05-06 16:00] VITALS: BP 113/85
== END 2019-05-06 16:29 | disposition home or self-care (01) ==
LOC: ED 11:59
PROVIDERS: Family Medicine
DX: J20.8 Acute bronchitis due to other specified organisms (principal); E11.9 Type 2 diabetes mellitus without complications; J44.9 Chronic obstructive pulmonary disease, unspecified